=== PATIENT | male | born 1975 ===

== ENCOUNTER 2018-07-17 08:38 | Emergency (ER) | payer BC, MEDICAID ==
[2018-07-17 08:38] VITALS: BMI 27.4
[2018-07-17 08:54] VITALS: PULSE 77; TEMP 98.3
[2018-07-17] MEDS ORDERED: Tmp-Smz 800 mg-160 mg DS Tab PO STA (09:25)
--- NOTE | 2018-07-17 09:31 | ED PDOC ---
Arrival/HPI - General Chief Complaint: Lower Extremity Problem/Injury Time Seen by Provider: 07/17/18 09:21 Historian: Patient - History of Present Illness Narrative History of Present Illness (Text): 07/17/18 09:26 42 year old male, pmh including dm, nkda, last tetanus under 7 years ago, complaining of lt.foot 5th digit x 2 days. Pt. stated that he hit his left foot 5th digit about 2 days ago, concerning for infection as he has diabetes, no numbness or tingling, no foul smelling, no difficulty walking, no skin redness, no other medical or psychological complaints. Past Medical History - Provider Review Nursing Documentation Reviewed: Yes - Endocrine/Metabolic Hx Diabetes Mellitus Type 2: Yes - Integumentary Hx Psoriasis: Yes (generalized) - Musculoskeletal/Rheumatological Hx Falls: No - Gastrointestinal Other/Comment: appedectomy - Psychiatric Hx Depression: No Hx Emotional Abuse: No Hx Physical Abuse: No Hx Substance Use: No - Surgical History Hx Appendectomy: Yes - Anesthesia Hx Anesthesia: No Hx Anesthesia Reactions: No Hx Malignant Hyperthermia: No - Suicidal Assessment Feels Threatened In Home Enviroment: No Family/Social History - Physician Review Nursing Documentation Reviewed: Yes Family/Social History: Unknown Family HX Smoking Status: Never Smoked Hx Alcohol Use: Yes Hx Substance Use: No Hx Substance Use Treatment: No Allergies/Home Meds Allergies/Adverse Reactions: Allergies No Known Allergies Allergy (Verified 03/08/14 12:52) Home Medications: Home Meds Medication Instructions Recorded Confirmed Insulin Detemir [Levemir] 15 units SC HS PRN 11/11/14 07/17/18 metFORMIN [glucOPHAGE] 850 mg PO BID 07/17/18 07/17/18 Review of Systems - Review of Systems Constitutional: absent: Fatigue, Fevers Eyes: absent: Vision Changes ENT: absent: Hearing Changes Respiratory: absent: SOB, Cough Cardiovascular: absent: Chest Pain Gastrointestinal: absent: Abdominal Pain, Nausea, Vomiting Musculoskeletal: Arthralgias. absent: Back Pain, Neck Pain Skin: absent: Rash, Pruritis, Skin Lesions, Laceration, Abscess, Ulcer, Cellulitis Neurological: absent: Headache, Dizziness Psychiatric: absent: Anxiety, Depression, Suicidal Ideation Physical Exam Vital Signs Reviewed: Yes Vital Signs Temp Pulse Resp BP Pulse Ox 07/17/18 08:38 98.3 F 77 18 104/62 100 Temperature: Afebrile Blood Pressure: Normal Pulse: Regular Respiratory Rate: Normal Appearance: Positive for: Well-Appearing, Non-Toxic, Comfortable Pain Distress: Mild Mental Status: Positive for: Alert and Oriented X 3 - Systems Exam Head: Present: Atraumatic, Normocephalic Pupils: Present: PERRL Extroacular Muscles: Present: EOMI Conjunctiva: Present: Normal Mouth: Present: Moist Mucous Membranes Neck: Present: Normal Range of Motion Respiratory/Chest: Present: Clear to Auscultation, Good Air Exchange. No: Respiratory Distress, Accessory Muscle Use Cardiovascular: Present: Regular Rate and Rhythm, Normal S1, S2. No: Murmurs Abdomen: No: Tenderness, Distention, Peritoneal Signs Back: Present: Normal Inspection Upper Extremity: Present: Normal Inspection. No: Cyanosis, Edema Lower Extremity: Present: Normal Inspection, NORMAL PULSES, Neurovascularly Intact, Other (Lt. foot: visible prolong growth nail noted on the 5th digit with no nail detachment plus no subungal hematoma but there is blood noted laterally on the 5th digit toe, no cellulititis or ulcers, FROM without limitation, sen sation intact, motor 5/5, +DPPT pulses, capillary refill< 2 seconds, neurovascular intact. ). No: Edema Neurological: Present: GCS=15, CN II-XII Intact, Speech Normal, Motor Func Grossly Intact, Normal Cerebellar Funct, Gait Normal, Memory Normal Skin: Present: Warm, Dry, Normal Color. No: Rashes Psychiatric: Present: Alert, Oriented x 3, Normal Insight, Normal Concentration Medical Decision Making ED Course and Treatment: 07/17/18 09:32 -Wound clean with saline and betadine 5th digit of left foot, bacitracin and gauze dressing. -bactrim ds -Pt. refused pain med -xray -observe and reassess 07/17/18 11:35 -Lt. foot xray: No acute findings -post shoe and cane -Discharge home with post op shoe, cane, bactrim ds, bacitracin oinment, follow up with your own pmd and wash oil pump operator within 2 days, return to the ER for any new or worsening signs or symptoms. - RAD Interpretation Radiology Orders: 07/17/18 09:25 FOOT LEFT 5TH DIGIT (TOE) [RAD] Stat Date of service: 07/17/2018 PROCEDURE: Left Foot and 5th digit radiographs. HISTORY: lt. 5th digit toe injury COMPARISON: None. FINDINGS: BONES: Normal. No fracture. JOINTS: Normal. SOFT TISSUES: Normal. OTHER FINDINGS: None. IMPRESSION: No acute findings Nutrition Services Associate: Radiologist - PA / COMMUNITY SERVICES COORDINATOR / Resident Statement / has reviewed & agrees with the documentation as recorded. Disposition/Present on Arrival - Present on Arrival Any Indicators Present on Arrival: No History of DVT/PE: No History of Uncontrolled Diabetes: No Urinary Catheter: No History of Decub. Ulcer: No History Surgical Site Infection Following: None - Disposition Have Diagnosis and Disposition been Completed?: Yes Diagnosis: Toe injury Disposition: HOME/ ROUTINE Disposition Time: 11:36 Patient Plan: Discharge Condition: GOOD Additional Instructions: -Discharge home with post op shoe, cane, bactrim ds, bacitracin oinment, follow up with your own pmd and wash oil pump operator within 2 days, return to the ER for any new or worsening signs or symptoms. Prescriptions: Bacitracin Ointment [Bacitracin] 1 appful TOP BID PRN #15 g PRN Reason: Other Sulfamethoxazole/Trimethoprim [Bactrim DS 800 mg-160 mg] 1 tab PO BID #20 tab Forms: [facility] ([place]an), WORK NOTE
--- NOTE | 2018-07-17 11:16 | RAD ---
Date of service: 07/17/2018 PROCEDURE: Left Foot and 5th digit radiographs. HISTORY: lt. 5th digit toe injury COMPARISON: None. FINDINGS: BONES: Normal. No fracture. JOINTS: Normal. SOFT TISSUES: Normal. OTHER FINDINGS: None. IMPRESSION: No acute findings
[2018-07-17 12:02] VITALS: BP 108/77; RESP 17; O2SAT 98
== END 2018-07-17 12:07 | disposition home or self-care (01) ==
LOC: ED 08:38
DX: S99.922A Unspecified injury of left foot, initial encounter (principal); W22.8XXA Striking against or struck by other objects, initial encounter; E11.9 Type 2 diabetes mellitus without complications

== ENCOUNTER 2018-10-17 01:37 | Emergency (ER) | payer BC, MEDICAID ==
[2018-10-17 01:38] VITALS: BMI 27.4
[2018-10-17 01:50] VITALS: TEMP 98.3
[2018-10-17] MEDS ORDERED: Sodium Chloride 0.9% 1,000 ML IV STA (02:04)
--- NOTE | 2018-10-17 02:20 | ED PDOC ---
Arrival/HPI - General Chief Complaint: Abdominal Pain Time Seen by Provider: 10/17/18 01:57 Historian: Patient - History of Present Illness Narrative History of Present Illness (Text): 10/17/18 02:18 42 year old male, with a past medical history of diabetes, who presents to the emergency department complaining of left upper abdominal/stomach discomfort that radiates to the left flank. Patient denies any nausea, vomiting, diarrhea, chills, chest pain, shortness of breath, or any other somatic complaints.No history of any trauma. PMD: Dr. Subramanian Symptom Onset: Gradual Symptom Course: Unchanged Activities at Onset: Light Context: Home Past Medical History - Provider Review Nursing Documentation Reviewed: Yes Primary Care Provider: Sridevi Subramanian V - Infectious Disease Hx of Infectious Diseases: None - Endocrine/Metabolic Hx Diabetes Mellitus Type 2: Yes - Integumentary Hx Psoriasis: Yes (generalized) - Musculoskeletal/Rheumatological Hx Falls: No - Gastrointestinal Other/Comment: appedectomy - Psychiatric Hx Depression: No Hx Emotional Abuse: No Hx Physical Abuse: No Hx Substance Use: No - Surgical History Hx Appendectomy: Yes - Anesthesia Hx Anesthesia: Yes Hx Anesthesia Reactions: No Hx Malignant Hyperthermia: No - Suicidal Assessment Feels Threatened In Home Enviroment: No Family/Social History - Physician Review Nursing Documentation Reviewed: Yes Family/Social History: Unknown Family HX Smoking Status: Never Smoked Hx Alcohol Use: Yes Hx Substance Use: No Hx Substance Use Treatment: No Allergies/Home Meds Allergies/Adverse Reactions: Allergies No Known Allergies Allergy (Verified 10/17/18 01:50) Home Medications: Home Meds Medication Instructions Recorded Confirmed Insulin Detemir [Levemir] 15 units SC HS PRN 11/11/14 10/17/18 metFORMIN [glucOPHAGE] 850 mg PO BID 07/17/18 10/17/18 Review of Systems - Physician Review All systems were reviewed & negative as marked: Yes - Review of Systems Respiratory: absent: SOB, Cough Cardiovascular: absent: Chest Pain Gastrointestinal: absent: Diarrhea, Nausea, Vomiting Physical Exam Vital Signs Reviewed: Yes Vital Signs Temp Pulse Resp BP Pulse Ox 10/17/18 01:50 98.3 F 65 15 135/85 100 Temperature: Afebrile Blood Pressure: Normal Pulse: Regular Respiratory Rate: Normal Appearance: Positive for: Well-Appearing, Non-Toxic, Comfortable Pain Distress: None Mental Status: Positive for: Alert and Oriented X 3 - Systems Exam Head: Present: Atraumatic, Normocephalic Pupils: Present: PERRL Extroacular Muscles: Present: EOMI Conjunctiva: Present: Normal Mouth: Present: Moist Mucous Membranes Neck: Present: Normal Range of Motion Respiratory/Chest: Present: Clear to Auscultation, Good Air Exchange. No: Re spiratory Distress, Accessory Muscle Use Cardiovascular: Present: Regular Rate and Rhythm, Normal S1, S2. No: Murmurs Abdomen: Present: Normal Bowel Sounds. No: Tenderness, Distention, Peritoneal Signs Back: Present: Normal Inspection. No: CVA Tenderness Upper Extremity: Present: Normal Inspection. No: Cyanosis, Edema Lower Extremity: Present: Normal Inspection. No: Edema Neurological: Present: GCS=15, CN II-XII Intact, Speech Normal Skin: Present: Warm, Dry, Normal Color. No: Rashes Psychiatric: Present: Alert, Oriented x 3, Normal Insight, Normal Concentration Medical Decision Making ED Course and Treatment: 10/17/18 02:17 Impression: 42 year old male presents to the ED complaining of left upper abdominal discomfort. Differential Diagnosis included but are not limited to: Plan: -- CT A&P -- EKG -- Labs -- Urinalysis -- Iv fluids -- Reassess and disposition Prior Visits: Notes and results from previous visits were reviewed. Progress Notes: 10/17/18 04:41 TECHNIQUE: Axial and reformatted sagittal and coronal images of the abdomen pelvis obtained without IV contrast administration. COMPARISON: None. FINDINGS: The visualized lung bases are unremarkable. Normal unenhanced liver. Normal gallbladder and extrahepatic biliary system. Normal unenhanced spleen. Normal pancreas. Normal bilateral adrenal glands. Normal size of the right kidney. There is no right renal mass. There are no right renal calculi. There is no right hydronephrosis. Normal visualized right ureter. Normal size of the left kidney. There is no left renal mass. There are no left renal calculi. There is no left hydronephrosis. Normal visualized left ureter. Normal visualized stomach. Normal small intestine. Uncomplicated diverticulosis of the colon. The appendix is visualized and appears normal. There is no demonstrated peritoneal fluid. Normal abdominal aorta. Normal inferior vena cava. Normal retroperitoneum. Normal urinary bladder. There is no pelvic mass lesion or lymphadenopathy. There is no pelvic fluid. Fat containing right inguinal hernia without incarceration. Normal osseous structures. IMPRESSION: Uncomplicated colonic diverticulosis. Fat containing right inguinal hernia without incarceration. - RAD Interpretation Radiology Orders: 10/17/18 02:11 ABD & PELVIS W/O PO OR IV CONT [CT] Stat - EKG Interpretation EKG Interpretation (Text): 10/17/18 02:31 EKG reviewed, shows: NSR at 66 bpm, no acute changes. Interpreted by ED Physician: Yes - Medication Orders Current Medication Orders: Sodium Chloride (Sodium Chloride 0.9%) 1,000 mls @ 999 mls/hr IV .Q1H1M STA Stop: 10/17/18 03:04 - Scribe Statement The provider has reviewed the documentation as recorded by the Archanaibjohn Starr All medical record entries made by the Archanaibe were at my direction and personally dictated by me. I have reviewed the chart and agree that the record accurately reflects my personal performance of the history, physical exam, medical decision making, and the department course for this patient. I have also personally directed, reviewed, and agree with the discharge instructions and disposition. Disposition/Present on Arrival - Present on Arrival Any Indicators Present on Arrival: No History of DVT/PE: No History of Uncontrolled Diabetes: No Urinary Catheter: No History of Decub. Ulcer: No History Surgical Site Infection Following: None - Disposition Have Diagnosis and Disposition been Completed?: Yes Diagnosis: Gastritis Disposition: HOME/ ROUTINE Disposition Time: 06:32 Patient Plan: Discharge Patient Problems: Current Active Problems Problem Status Onset Gastritis Acute Condition: GOOD Discharge Instructions (ExitCare): Gastritis (DC) Additional Instructions: Take meds as prescribed/[place] diet next few days/follow up with your doctor this week Prescriptions: Phenobarb/Hyoscy/Atropine/Scop [ Tablet] 16.2 mg PO Q6 PRN #12 tablet PRN Reason: Stomach discomfort Referrals: Sridevi Subramanian DO [Primary Care Provider] - Follow up with primary Forms: [facility] (Slovenian), WORK NOTE
[2018-10-17 02:25] LABS: HEMOGLOBIN 13.4 g/dL (14.0-18.0); MEAN CELL VOLUME 90.7 fl (80.0-105.0); MEAN CORPUSCULAR HEMOGLOBIN 31.1 pg (25.0-35.0); MEAN CORPUSCULAR HGB CONC 34.3 g/dl (31.0-37.0); MEAN PLATELET VOLUME 9.8 fl (7.0-11.0); RBC 4.31 10^6/uL (3.5-6.1); RED CELL DISTRIBUTION WIDTH 12.9 % (11.5-14.5); WHITE BLOOD COUNT 7.5 10^3/uL (4.5-11.0)
[2018-10-17 02:40] LABS: ALB/GLOB RATIO 1.3 (1.1-1.8); ALT/SGPT 18 U/L (7-56); AST/SGOT 27 U/L (17-59); BLOOD UREA NITROGEN 15 mg/dL (7-21); CALCIUM 8.9 mg/dL (8.4-10.5); GFR NON-AFRICAN AMERICAN > 60; LIPASE 154 U/L (23-300)
[2018-10-17 05:52] LABS: URINE BILIRUBIN NEGATIVE (NEGATIVE); URINE BLOOD NEGATIVE (NEGATIVE); URINE GLUCOSE (UA) >=1000 mg/dL (NEGATIVE); URINE LEUKOCYTE ESTERASE NEGATIVE Leu/uL (NEGATIVE); URINE PROTEIN NEGATIVE mg/dL (<30 mg/dL)
[2018-10-17 06:20] LABS: URINE APPEARANCE CLEAR (CLEAR); URINE COLOR YELLOW (YELLOW)
[2018-10-17 06:55] VITALS: BP 123/62; PULSE 71; RESP 18; O2SAT 95
--- NOTE | 2018-10-17 08:22 | CT ---
Date of service: 10/17/2018 PROCEDURE: CT Abdomen and Pelvis without intravenous contrast HISTORY: left flank/abdominal pain. Relevant surgical history: Appendectomy. COMPARISON: None. TECHNIQUE: Unenhanced. Neither IV nor oral contrast administered Radiation dose: Total exam DLP = 389.48 mGy-cm. This CT exam was performed using one or more of the following dose reduction techniques: Automated exposure control, adjustment of the mA and/or kV according to patient size, and/or use of iterative reconstruction technique. FINDINGS: LOWER THORAX: Unremarkable. LIVER: Unremarkable. No gross lesion or ductal dilatation. GALLBLADDER AND BILE DUCTS: Unremarkable. PANCREAS: Unremarkable. No gross lesion or ductal dilatation. SPLEEN: Unremarkable. ADRENALS: Unremarkable. No mass. KIDNEYS AND URETERS: Unremarkable. No hydronephrosis. No solid mass. VASCULATURE: Unremarkable. No aortic aneurysm. No atherosclerotic calcification or mural plaque present. BOWEL: Constipation without fecal impaction or obstruction. Diverticulosis without an acute inflammatory component or other associated pathologic process. APPENDIX: Surgically absent PERITONEUM: Unremarkable. No free fluid. No free air. LYMPH NODES: Unremarkable. No enlarged lymph nodes. BLADDER: Unremarkable. REPRODUCTIVE: Unremarkable. BONES: No acute fracture. OTHER FINDINGS: None. IMPRESSION: No significant or acute findings to account for/ related to the clinical presentation. Additional benign and/or incidental findings described above. Concordant results (preliminary interpretation) provided by [employer]. Procedure Completed: 03:04. Preliminary Report: Interpreted and electronically signed: 04:18. Final Interpretation: 08:18.
--- NOTE | 2018-10-17 08:53 | CARD ---
APPROVED REPORT Date of service: 10/17/2018 EKG Measurement Heart [id number] <Conclusion> Normal sinus rhythm Normal ECG
== END 2018-10-17 06:50 | disposition home or self-care (01) ==
LOC: ED 01:37
DX: K29.70 Gastritis, unspecified, without bleeding (principal); E11.9 Type 2 diabetes mellitus without complications
CPT/HCPCS: 74176; 80053; 81003; 83690; 85027; 93005; 96361; 96374; 99284; J1885; J7030